=== PATIENT | male | born 1980 | race Two or more races ===

== ENCOUNTER 2024-10-27 09:58 | Emergency (ER) | payer MEDICAID ==
[~2024-10-27] VITALS: Ht 175.3 cm; Wt 88.2 kg
--- NOTE | 2024-10-27 10:46 | ED.PDOC ---
HPI (NEURO) HPI Comments 44 y.o male presents to the ED for a chief complaint of dizziness and nausea that presented yesterday while he was outside his patio. Patient reports today he woke up with the same symptoms and new onset periumbilical pain. Patient denies any chest pain, SOB, fever, chills vomiting, falls, head injuries. He ahs associated nausea Chief Complaint: Dizziness Time Seen by MD: 10:27 Reviewed Notes: Nurses Notes, Medications, Allergies Information Source: Patient Mode of Arrival: Ambulatory Severity: Moderate Dizziness/Weakness Severity: Does not affect activitie Timing: Days (1) Duration: Since onset Onset: At rest Circumstances: Spontaneous Associated Signs and Symptoms: Nausea Past Medical History PAST MEDICAL HISTORY: Denies Surgical History: Denies all surgeries Family History Family History: Reviewed,noncontributory to illness Social History Smoker: Non-Smoker Alcohol: Denies ETOH Use Drugs: Denies Drug Use Lives In: Home Constitutional: denies: chills, diaphoresis, fatigue, fever, malaise, sweats, weakness, others EENTM: denies: blurred vision, double vision, ear bleeding, ear discharge, ear drainage, ear pain, ear ringing, eye pain, eye redness, hearing loss, mouth pain, mouth swelling, nasal discharge, nose bleeding, nose congestion, nose pain, photophobia, tearing, throat pain, throat swelling, voice changes, others Respiratory: denies: cough, hemoptysis, orthopnea, SOB at rest, shortness of breath, SOB with excertion, stridor, wheezing, others Cardiovascular: denies: chest pain, dizzy spells, diaphoresis, Dyspnea on exertion, edema, irregular heart beat, left arm pain, lightheadedness, palpitations, PND, syncope, others Gastrointestinal: reports: nausea; denies: abdomen distended, abdominal pain, blood streaked bowels, constipated, diarrhea, dysphagia, difficulty swallowing, hematemesis, melena, poor appetite, poor fluid intake, rectal bleeding, rectal pain, vomiting, others Genitourinary: denies: burning, dysuria, flank pain, frequency, hematuria, incontinence, penile discharge, penile sore, pain, testicle pain, testicle swelling, urgency, others Neurological: reports: dizziness; denies: fainting, headache, left sided numbness, left sided weakness, numbness, paresthesia, pre-existing deficit, right sided numbness, right sided weakness, seizure, speech problems, tingling, tremors, weakness, others Musculoskeletal: denies: back pain, gout, joint pain, joint swelling, muscle pain, muscle stiffness, neck pain, others Integumetry: denies: bruises, change in color, change in hair/nails, dryness, laceration, lesions, lumps, rash, wounds, others Allergic/Immunocompromised: denies: Difficulty Healing, Frequent Infections, Hives, Itching, others Hematologic/Lymphatic: denies: anemia, blood clots, easy bleeding, easy bruising, swollen glands, others Endocrine: denies: excessive hunger, excessive sweating, excessive thirst, excessive urination, flushing, intolerance to cold, intolerance to heat, unexplained weight gain, unexplained weight loss, others Psychiatric: denies: anxiety, bipolar disorder, depression, hopeless, panic disorder, schizophrenia, sleepless, suicidal, others All Other Systems: Reviewed and Negative Physical Exam General Appearance: No Apparent Distress, Normal HEENT: Normal ENT Inspection, Pharynx Normal, TMs Normal Neck: Full Range of Motion, Non-Tender, Normal, Normal Inspection Respiratory: Chest Non-Tender, Lungs Clear, No Accessory Muscle Use, No Respiratory Distress, Normal Breath Sounds Cardiovascular: No Edema, No JVD, No Murmur, No Gallop, Normal Peripheral Pulses, Regular Rate/Rhythm Breast Exam: Deferred Gastrointestinal: No Organomegaly, Non Tender, No Pulsatile Mass, Normal Bowel Sounds, Soft Genitalia: Deferred Pelvic: Deferred Rectal: Deferred Extremities: No calf tenderness, Normal capillary refill, Normal inspection, Normal range of motion, Non-tender, No pedal edema Musculoskeletal : Apperance: Normal Neurologic: Alert, Dizziness, Normal Affect, Normal Mood Cerebellar Function: Normal Reflexes: Normal Skin: Dry, Normal Color, Warm Lymphatic: No Adenopathy Was a procedure done? Was a procedure done?: No Differential Diagnosis (SZ) General Weakness: Electrolyte imbalance, Vertigo: central, Vertigo: peripheral, Vestibular neuronitis X-Ray, Labs, Meds, VS Vital Signs Date Time Temp Pulse Resp B/P (MAP) Pulse Ox O2 Delivery O2 Flow Rate FiO2 10/27/24 10:50 65 20 97 Room Air* 0 21 10/27/24 10:49 98.0 62 18 125/80 (95) 97 98.0 10/27/24 10:27 98.2 62 18 129/89 (102) 99 10/27/24 10:27 61 Lab Test 10/27/24 11:50 10/27/24 10:48 10/27/24 10:23 Range/Units Troponin I High Sensitivity < 3 L < 3 L </=54 ng/L White Blood Count 5.6 4.4-10.8 10^3/uL Red Blood Count 5.03 4.5-5.90 10^6/uL Hemoglobin 16.5 13.5-17.5 g/dL Hematocrit 47.8 41.0-53.0 % Mean Corpuscular Volume 95.0 80.0-100.0 fL Mean Corpuscular Hemoglobin 32.8 H 28.0-32.0 pg Mean Corpuscular Hemoglobin Concent 34.6 32.0-36.0 g/dL Red Cell Distribution Width 12.6 11.8-14.3 % Platelet Count 309 140-450 10^3/uL Mean Platelet Volume 7.7 6.9-10.8 fL Neutrophils (%) (Auto) 49.0 37.0-80.0 % Lymphocytes (%) (Auto) 38.9 10.0-50.0 % Monocytes (%) (Auto) 6.8 0.0-12.0 % Eosinophils (%) (Auto) 3.7 0.0-7.0 % Basophils (%) (Auto) 1.6 0.0-2.0 % Neutrophils # (Auto) 2.7 1.6-8.6 10 ^3/uL Lymphocytes # (Auto) 2.2 0.4-5.4 10 ^3/uL Monocytes # (Auto) 0.4 0-1.3 10 ^3/uL Eosinophils # (Auto) 0.2 0-0.8 10 ^3/uL Basophils # (Auto) 0.1 0-0.2 10 ^3/uL Nucleated Red Blood Cells 0.3 % Sodium Level 139 136-145 mmol/L Potassium Level 4.2 3.5-5.1 mmol/L Chloride Level 108 H 98-107 mmol/L Carbon Dioxide Level 25 20-31 mmol/L Anion Gap 6 5-15 Blood Urea Nitrogen 14 9-23 mg/dL Creatinine 0.96 0.700-1.30 mg/dL Glomerular Filtration Rate Calc 100 >90 mL/min BUN/Creatinine Ratio 14.6 10.0-20.0 Serum Glucose 112 H 74-106 mg/dL Calcium Level 9.9 8.7-10.4 mg/dL Total Bilirubin 0.6 0.2-1.0 mg/dL Aspartate Amino Transferase (AST) 25 13-40 U/L Alanine Aminotransferase (ALT) 43 H 7-40 U/L Alkaline Phosphatase 84 46-116 U/L Total Protein 7.8 5.7-8.2 g/dL Albumin 4.7 3.2-4.8 g/dL Urine Color Light-yellow Yellow Urine Clarity Clear Clear Urine pH 5.5 5.0-9.0 Urine Specific [place] 1.024 1.001-1.035 Urine Protein Negative Negative Urine Ketones Negative Negative Urine Blood Negative Negative /uL Urine Nitrite Negative Negative Urine Bilirubin Negative Negative Urine Urobilinogen Normal Negative mg/dL Urine Leukocyte Esterase Negative Negative /uL Urine RBC 1 0 - 3 /hpf Urine WBC 1 0 - 3 /hpf Urine Squamous Epithelial Cells None seen <5 /hpf Urine Bacteria None seen None Seen /hpf Urine Glucose Normal Normal mg/dL Current Medications Medications (Trade) Dose Ordered Sig/Leonora Route Start Time Stop Time Status Last Admin Ondansetron HCl (Zofran Po) 4 mg ONCE ONCE PO 10/27/24 10:45 10/27/24 10:46 DC 10/27/24 10:51 Meclizine HCl (Antivert Tablet) 25 mg ONCE ONCE PO 10/27/24 10:45 10/27/24 10:46 DC 10/27/24 10:51 EXAM: CT HEAD WITHOUT CONTRAST HISTORY: headache COMPARISON: None TECHNIQUE: Axial images were obtained and reformatted in coronal and sagittal planes. All CT scans at this medical facility are performed using dose modulation techniques as appropriate to a performed exam including the following: Automated exposure control was utilized; adjustment of the MA and/or KV according to patient size; and use of iterative reconstruction technique. CT Dose: CTDI volume is 55.51 mGy. Dose-length product is 889.9 mGy*cm FINDINGS: Supratentorial Region: No evidence for large acute territorial ischemia. No intracranial hemorrhage is noted. Posterior Fossa: No acute abnormality. Brainstem: Unremarkable. Sellar/Suprasellar Region: Unremarkable. Ventricles, Cisterns, Sulci: Age-appropriate. Orbits: Unremarkable. Paranasal Sinuses: Moderate diffuse paranasal sinus mucosal thickening partial opacification of the ethmoid and right sphenoid sinuses. Small amount of free air noted in the dependent portion of the right maxillary sinus. Mastoid Air Cells: Unremarkable. Vasculature: Unremarkable. Bones/Soft Tissues: No acute abnormality. A 1.3 cm partially lucent lesion noted in the left sphenoid bone inferolateral to the left sphenoid sinus most likely a benign intraosseous or other benign etiologies such as fibrous dysplasia. Other: None. IMPRESSION: 1. No acute intracranial process. 2. Moderate acute on chronic paranasal sinusitis. 3. Incidentally noted is a 1.3 cm benign-appearing lesion in the left sphenoid bone, inferolateral 2 left sphenoid sinus most likely an intraosseous cyst or fibrous dysplasia. Recommend follow-up by sinus CT scan or MRI in 6 months. X-Ray, Labs, Meds, VS Comment This 44-year-old male presents to emergency room secondary to dizziness that has been intermittent since yesterday. He was unclear about what he means about feeling dizzy. However, he denies having sensation of the room spinning around him. Here, his physical exam was benign labs were benign. His CT scan shows multiple findings including acute any chronic sinusitis. Sinusitis is noted to be a cause of vertigo and dizziness. He was also noted to have a bone lesion. He was provided with a copy of his CT results. He is asked to follow up with his PCP for referral for further workup management of both issues. Time of 1ST Reevaluation: 10:46 Reevaluation 1ST: Unchanged Patient Education/Counseling: Diagnosis, Treatment, Prognosis Family Education/Counseling: No Family Present Departure 1 Departure Time of Disposition: 12:57 Impression: Primary Impression: Sinusitis Additional Impressions: Sphenoid cyst Dizziness Disposition: 01 HOME / SELF CARE / HOMELESS Condition: Good Discharged With: Self Critical Care Note Critical Care Time?: No Stability Stability form required: No I personally scribed for ASHA CROOKS MD ([email or web address]) on 10/27/24 at 10:46. Electronically submitted by Agnieszka Figueroa ([facility]). I personally scribed for ASHA CROOKS MD ([email or web address]) on 10/27/24 at 12:47. Electronically submitted by Agnieszka Figueroa ([facility]). ASHA CROOKS MD Oct 27, 2024 10:46
[2024-10-27 10:49] VITALS: TEMP 98
[2024-10-27 10:50] VITALS: PULSE 65; RESP 20; O2SAT 97
[2024-10-27] MEDS: ONDANSETRON ODT 4 MG TAB PO ONE (10:51)
[2024-10-27] MEDS: MECLIZINE HCL 25 MG TAB PO ONE (10:51)
[2024-10-27 11:02] LABS: Urine Bacteria None Seen /hpf (None Seen)
[2024-10-27 11:04] LABS: Basophils # (auto) 0.1 10 ^3/uL (0-0.2); Basophils % (auto) 1.6 % (0.0-2.0); Eosinophils # (auto) 0.2 10 ^3/uL (0-0.8); Eosinophils % (auto) 3.7 % (0.0-7.0); Hematocrit 47.8 % (41.0-53.0); Hemoglobin 16.5 g/dL (13.5-17.5); Lymphocytes # (auto) 2.2 10 ^3/uL (0.4-5.4); Lymphocytes % (auto) 38.9 % (10.0-50.0); Mean Corpuscular Hemoglobin 32.8 pg (28.0-32.0); Mean Corpuscular Hgb Conc. 34.6 g/dL (32.0-36.0); Monocytes # (auto) 0.4 10 ^3/uL (0-1.3); Monocytes % (auto) 6.8 % (0.0-12.0); Neutrophils # (auto) 2.7 10 ^3/uL (1.6-8.6); Nucleated Red Blood Cells % 0.3 %; Platelet Count (auto) 309 10^3/uL (140-450); Red Blood Cells 5.03 10^6/uL (4.5-5.90); Red Cell Distribution Width 12.6 % (11.8-14.3); White Blood Cell 5.6 10^3/uL (4.4-10.8)
[2024-10-27 11:14] LABS: Urine Blood Negative /uL (Negative); Urine Clarity Clear (Clear); Urine Color Light-Yellow (Yellow); Urine Protein, UAD Negative (Negative); Urine Specific Gravity 1.024 (1.001-1.035); Urine Squamous Epithelial Cell None Seen /hpf (<5); Urine Urobilinogen Normal (Negative); Urine WBC 1 /hpf (0 - 3); Urine pH 5.5 (5.0-9.0)
[2024-10-27 11:18] LABS: Albumin 4.7 g/dL (3.2-4.8); Alkaline Phosphatase 84 U/L (46-116); Anion Gap 6 (5-15); Aspartate Aminotransferase 25 U/L (13-40); BUN/Creatinine Ratio 14.6 (10.0-20.0); Bilirubin, Total 0.6 mg/dL (0.2-1.0); Blood Urea Nitrogen 14 mg/dL (9-23); Calcium 9.9 mg/dL (8.7-10.4); Carbon Dioxide 25 mmol/L (20-31); Potassium 4.2 mmol/L (3.5-5.1); Sodium 139 mmol/L (136-145); Total Protein 7.8 g/dL (5.7-8.2)
[2024-10-27 11:22] LABS: Alanine Aminotransferase 43 U/L (7-40); Chloride 108 mmol/L (98-107); Glucose 112 mg/dL (74-106)
--- NOTE | 2024-10-27 12:42 | DVH ---
EXAM: CT HEAD WITHOUT CONTRAST HISTORY: headache COMPARISON: None TECHNIQUE: Axial images were obtained and reformatted in coronal and sagittal planes. All CT scans at this medical facility are performed using dose modulation techniques as appropriate t o a performed exam including the following: Automated exposure control was utilized; adjustment of th e MA and/or KV according to patient size; and use of iterative reconstruction technique. CT Dose: CTDI volume is 55.51 mGy. Dose-length product is 889.9 mGy*cm FINDINGS: Supratentorial Region: No evidence for large acute territorial ischemia. No intracranial hemorrhage is noted. Posterior Fossa: No acute abnormality. Brainstem: Unremarkable. Sellar/Suprasellar Region: Unremarkable. Ventricles, Cisterns, Sulci: Age-appropriate. Orbits: Unremarkable. Paranasal Sinuses: Moderate diffuse paranasal sinus mucosal thickening partial opacification of the ethmoid and right sphenoid sinuses. Small amount of free air noted in the dependent portion of the r ight maxillary sinus. Mastoid Air Cells: Unremarkable. Vasculature: Unremarkable. Bones/Soft Tissues: No acute abnormality. A 1.3 cm partially lucent lesion noted in the left sphenoi d bone inferolateral to the left sphenoid sinus most likely a benign intraosseous or other benign azch ologies such as fibrous dysplasia. Other: None. IMPRESSION: 1. No acute intracranial process. 2. Moderate acute on chronic paranasal sinusitis. 3. Incidentally noted is a 1.3 cm benign-appearing lesion in the left sphenoid bone, inferolateral 2 left sphenoid sinus most likely an intraosseous cyst or fibrous dysplasia. Recommend follow-up by [facility] CT scan or MRI in 6 months.
[2024-10-27] MEDS ORDERED: FLUT1SPR5 (12:59)
[2024-10-27] MEDS ORDERED: METH4PAK PO (12:59)
[2024-10-27] MEDS ORDERED: MECL12.586 PO (13:11)
[2024-10-27] MEDS ORDERED: ACET1CAP14 PO (13:15)
[2024-10-27 14:20] VITALS: BP 132/89; PULSE 61; RESP 16; O2SAT 97
--- NOTE | 2024-10-28 07:12 | ECG ---
[facility] Test Date: 2024-10-27 Test Time: 10:27:39 Pat Name: BETTY CHAPIN Department: ED Room: Gender: M Cost Coordinator: DAVID : 1980 Requested By: ASHA CROOKS Order Number: [id number] Reading MD: Measurements Intervals [place] Rate: 61 P: 18 SD: 133 QRS: 99 QRSD: 91 T: 9 QT: 407 QTc: 410 Interpretive Statements Sinus rhythm Borderline right axis deviation ST elev, probable normal early repol pattern Please click the below link to view image of tracing.
== END 2024-10-27 14:22 | disposition home or self-care (01) ==
LOC: ER 09:58
DX: J32.9 Chronic sinusitis, unspecified (principal); J34.1 Cyst and mucocele of nose and nasal sinus
CPT/HCPCS: 36415; 70450; 80053; 81001; 82962; 84484; 85025; 93005; 99284; J8597; Q0162